=== PATIENT | female | born 1955 ===

== ENCOUNTER 2017-04-16 02:37 | Emergency (ER) | payer SELFPAY ==
[2017-04-16 02:57] VITALS: RESP 20; O2SAT 99
[2017-04-16] MEDS ORDERED: Belladonna-Phenobarbital PO STA (03:11)
[2017-04-16] MEDS ORDERED: Sodium Chloride 0.9% 1,000 ML IV ONE (03:11)
[2017-04-16] MEDS ORDERED: Belladonna-Phenobarbital ONE (03:23)
[2017-04-16] MEDS ORDERED: Sodium Chloride 0.9% 250 ML IV ONE (03:23)
--- NOTE | 2017-04-16 03:37 | C.PDOC ---
History Of Present Illness 62 year old female presents to the ED for evaluation of multiple episodes of diarrhea since yesterday and 2 episodes of vomiting this evening. Patient states that earlier tonight she felt weak and then syncopized. She states that she was caught by her sister however and did not fall. She regained consciousness shortly afterwards. She denies chest pain or diaphoresis at that time. Patient notes that she missed dose of metoprolol earlier today. Time Seen by Provider: 04/16/17 03:05 Chief Complaint (Nursing): GI Problem History Per: Patient History/Exam Limitations: no limitations Onset/Duration Of Symptoms: Days Associated Symptoms: Nausea, Vomiting, Diarrhea Last Bowel Movement: Today Recent travel outside of the [place]: No Past Medical History Reviewed: Historical Data, Nursing Documentation, Vital Signs Vital Signs: Last Vital Signs Temp 98.2 F 04/16/17 05:00 Pulse 103 H 04/16/17 05:00 Resp 20 04/16/17 05:00 BP 169/78 H 04/16/17 05:00 Pulse Ox 99 04/16/17 05:06 - Medical History PMH: Cardia Arrhythmia, HTN Denies: Chronic Kidney Disease Family History: States: No Known Family Hx - Social History Hx Alcohol Use: No Hx Substance Use: No - Immunization History Hx Tetanus Toxoid Vaccination: No Hx Influenza Vaccination: No Hx Pneumococcal Vaccination: No Review Of Systems Except As Marked, All Systems Reviewed And Found Negative. Constitutional: Positive for: Weakness. Negative for: Fever, Chills, Sweats ENT: Negative for: Ear Pain, Throat Pain Cardiovascular: Positive for: Other (Syncope). Negative for: Chest Pain Respiratory: Negative for: Cough, Shortness of Breath Gastrointestinal: Positive for: Nausea, Vomiting, Diarrhea. Negative for: Abdominal Pain Genitourinary: Negative for: Dysuria Skin: Negative for: Rash Neurological: Negative for: Headache Physical Exam - Physical Exam Appears: Non-toxic, No Acute Distress Skin: Normal Color, Warm, Dry Head: Atraumatic, Normacephalic Eye(s): bilateral: Normal Inspection, PERRL, EOMI Oral Mucosa: Moist Throat: Normal Neck: Normal, Normal ROM, Supple Chest: Symmetrical Cardiovascular: Rhythm Regular (Tachycardic ) Respiratory: Normal Breath Sounds, No Rales, No Rhonchi, No Wheezing Gastrointestinal/Abdominal: Soft, No Tenderness Back: Normal Inspection Extremity: Normal ROM, No Deformity Extremity: Bilateral: Atraumatic Neurological/Psych: Oriented x3, Normal Speech, Normal Motor, Normal Sensation, Other (Moving all extremities, no focal neurological deficits) Gait: Steady ED Course And Treatment - Laboratory Results Result Diagrams: 04/16/17 03:41 04/16/17 03:41 ECG Rhythm: Sinus Tachycardia (111), Nonspecific Changes ECG Interpretation: Normal, No Acute Changes O2 Sat by Pulse Oximetry: 99 Pulse Ox Interpretation: Normal Progress Note: Will order CMP, lipase, troponin, and CBC. PO , IV Zofran , and IV fluids administered. Pt reports moderate improvement of sx, has not been to bathroom with diarrhea. Pt denies dizzizness or weakness, VSS. Pt tolerated PO fluids and is fully ambulatory. Return precautions d/w pt who understand and agreed with plan Reevaluation Time: 05:06 Reassessment Condition: Improved Disposition - Disposition Disposition: HOME/ ROUTINE Disposition Time: 05:47 Condition: STABLE Additional Instructions: Please follow up in clinic Continue current meds Zofran if vomiting Liquid to soft diet- No dairy products or solid foods Return to ER if worse Prescriptions: Atenolol 50 mg PO DAILY #20 tablet Ondansetron ODT [Zofran ODT] 1 odt PO BID PRN #6 odt PRN Reason: Nausea/Vomiting Instructions: Viral Gastroenteritis, Adult (DC) Forms: [employer] (Occitan) Print Language: MAORI - Clinical Impression Clinical Impression: Gastroenteritis - Scribe Statement The provider has reviewed the documentation as recorded by the Scribe (Juan Carlos Lang) All medical record entries made by the Scribe were at my direction and personally dictated by me. I have reviewed the chart and agree that the record accurately reflects my personal performance of the history, physical exam, medical decision making, and the department course for this patient. I have also personally directed, reviewed, and agree with the discharge instructions and disposition.
[2017-04-16 03:44] LABS: BASO % 0.2 % (0.0-2.0); EOS % 0.2 % (0.0-4.0); HEMOGLOBIN 12.7 g/dL (11.0-16.0); LYMPH # 0.4 K/uL (1.0-4.3); LYMPH % 6.1 % (20.0-40.0); MEAN CELL VOLUME 88.4 fL (81.0-99.0); MEAN CORPUSCULAR HEMOGLOBIN 30.3 pg (27.0-31.0); MEAN CORPUSCULAR HGB CONC 34.3 g/dL (33.0-37.0); MEAN PLATELET VOLUME 7.5 fL (7.2-11.7); MONO # 0.4 K/uL (0.0-0.8); MONO % 6.4 % (0.0-10.0); NEUT % 87.1 % (50.0-75.0); PLATELET COUNT 248 K/uL (130-400); RED CELL DISTRIBUTION WIDTH 13.7 % (11.5-14.5); WHITE BLOOD COUNT 6.9 K/uL (4.8-10.8)
[2017-04-16 04:04] LABS: ALB/GLOB RATIO 0.9 (1.0-2.1); ALBUMIN 4.1 g/dL (3.5-5.0); ALT/SGPT 34 U/L (9-52); AST/SGOT 29 U/L (14-36); BANDS 1 % (0-2); BLOOD UREA NITROGEN 9 mg/dL (7-17); CALCIUM 9.3 mg/dl (8.6-10.4); GFR AFRICAN-AMERICAN > 60; GFR NON-AFRICAN AMERICAN > 60; LIPASE 65 U/L (23-300); LYMPHOCYTE 7 % (20-40); MONOCYTE 7 % (0-10); NEUTROPHIL 85 % (50-75); PLATELET ESTIMATE NORMAL (NORMAL); TOTAL CELLS COUNTED 100
[2017-04-16 05:20] VITALS: TEMP 98.2
[2017-04-16 05:22] VITALS: BP 169/78; PULSE 103
--- NOTE | 2017-04-19 23:01 | CARD ---
APPROVED REPORT EKG Measurement Heart [id number] MD [id number] <Conclusion> Sinus tachycardia Otherwise normal ECG
== END 2017-04-16 06:27 | disposition home or self-care (01) ==
LOC: C.ER 02:37 → EDBD 02:37 → C.ER 06:27
DX: K52.9 Noninfective gastroenteritis and colitis, unspecified (principal)
CPT/HCPCS: 80053; 83690; 84484; 85025; 93005; 96361; 96374; 96376; 99285; J2405; J7040